=== PATIENT | male | born 1960 | race African-American/Black ===

== ENCOUNTER 2016-03-17 22:19 | Inpatient (IN) | payer MEDICAID, OTHER ==
[~2016-03-17] VITALS: Ht 180.3 cm; Wt 60.0 kg
[~2016-03-17 22:19] MED LIST: ACET325T33 PO
--- NOTE | 2016-03-18 01:52 | RADRPT ---
PROCEDURE: Chest. CLINICAL INDICATION: Shortness of breath and cough. TECHNIQUE: Single frontal view of the chest was obtained. COMPARISON: 01/17/2013. FINDINGS: The cardiac silhouette is within normal limits. The aortic arch is unremarkable. There is a left l ower paratracheal opacity. There is no vascular congestion or pleural effusion. There is no pneumo thorax. IMPRESSION: Left lower paratracheal opacity could represent a consolidation or mass. Further evaluation by CT is recommended. A call report was made to SAMANTA Hodge at 01:50 a.m. .Jeovanny Del Cid MD, MD Date Time Electronically viewed and signed by .Jeovanny Del Cid MD, MD on 03/18/2016 01:51 .T/
[2016-03-18] MEDS ORDERED: morphine 4 MG/ML VIAL IV STA (02:29)
[2016-03-18] MEDS ORDERED: SOD CHLORIDE 0.9% 1,000 ML IV STA (02:29)
[2016-03-18] MEDS ORDERED: ONDANSETRON 4 MG INJ IV STA (02:29)
--- NOTE | 2016-03-18 03:20 | ERD ---
ER Documentation Chief Complaint Date/Time DATE: 03/18/16 TIME: 03:06 Chief Complaint c/o body itch x 1 month (TATIANA HODGE PA-C) HPI Patient is a 55-year-old male who presents to the emergency department complaining of body itching times one month. Patient states that it "itches inside all over, but it is more in the throat and chest." Patient states that he has been to many hospitals and "nobody is taking care of me." Patient states he's tried numerous medications were no relief symptoms, however he does not recall the names of the medications. Patient states he's been having symptoms for over one month. Patient states that he has hoarseness in his voice that is not resolving. Patient also reports shortness of breath and a cough. He states his cough is dry. He denies any hemoptysis. Patient reports dysphagia and shortness of breath. Patient reports decreased appetite. He states that he can "only eat a banana" per day. Patient reports 15 pounds of weight loss over the last few months. Patient denies any fevers but does report chills. Patient denies any abdominal pain, nausea, vomiting. Patient does smoke cigarettes. (TATIANA HODGE PA-C) ROS All systems reviewed and are negative except as per history of present illness. (TATIANA HODGE PA-C) Medications Home Meds Discontinued Scripts Acetaminophen* (Tylenol*) 325 Mg Tablet, 2 TAB PO Q6 Y for FEVER, #20 TAB Prov:VICKY BAZZI MD 12/18/14 Allergies Allergies: Coded Allergies: No Known Drug Allergies (Verified Allergy, Unknown, 03/18/16) PMhx/Soc Medical and Surgical Hx: pt denies Medical Hx, pt denies Surgical Hx Anesthesia Reaction: No Hx Neurological Disorder: No Hx Respiratory Disorders: No Hx Cardiac Disorders: No Hx Psychiatric Problems: Yes (SCHIZOPHRENIA) Hx Miscellaneous Medical Probl: No Hx Alcohol Use: Yes (occassional) Hx Substance Use: Yes (marijuana) Hx Tobacco Use: Yes Smoking Status: Current some day smoker (TATIANA HODGE PA-C) Physical Exam Vitals Vital Signs Date Time Temp Pulse Resp B/P Pulse Ox O2 Delivery O2 Flow Rate FiO2 03/18/16 02:58 98.3 03/17/16 22:24 98.6 115 20 129/88 97 (Coral Santos PA-C) Physical Exam GENERAL: Well-developed, well-nourished male. Appears in no acute distress. Speaking in full sentences. HEAD: Normocephalic, atraumatic. No deformities or ecchymosis. EYE: Pupils equal, round, and reactive to light. EOMs intact. No conjunctival erythema. No scleral icterus. No eye discharge. ENT: External ear without any masses or tenderness. Auditory canals clear bilaterally. TM visualized bilaterally, non-erythematous, non-bulging. Nasal mucosa pink with no discharge. Oropharynx is pink without any tonsillar erythema or exudates. No uvula deviation. No kissing tonsils. NECK: Supple. Normal ROM of neck. LUNGS: Clear to auscultation bilaterally. No rhonchi, wheezing, rales or coarse breath sounds. HEART: Regular rate and rhythm. No murmurs, rubs or gallops. ABDOMEN: Soft, nontender, and nondistended. Positive bowel sounds in all four quadrants. No rebound tenderness, no guarding. (-) McBurney's point tenderness. . EXTREMITIES: Equal pulses bilaterally. No peripheral clubbing, cyanosis or edema. No unilateral leg swelling. NEUROLOGIC: Alert and oriented to person, place and time. Moving all four extremities. 5/5 strength in all extremities. Normal speech. Steady gait. SKIN: Normal color. Warm and dry. No rashes or lesions. PSYCH: Appears agitated. Yelling at "girlfriend." Demanding medication for pain. (TATIANA HODGE PA-C) Result Diagram: 03/18/168 03/18/16 0248 Results 24 hrs Laboratory Tests Test 03/18/16 02:48 Alanine Aminotransferase (ALT/SGPT) 33IU/L Albumin 3.8g/dl Albumin/Globulin Ratio 1.18 Alkaline Phosphatase 163IU/L Anion Gap 17 Aspartate Amino Transf (AST/SGOT) 45IU/L Basophils # 0.010^3/ul Basophils % 0.2% Blood Morphology Comment Blood Urea Nitrogen 11mg/dl Calcium Level 10.5mg/dl Carbon Dioxide Level 29mmol/L Chloride Level 96mmol/L Creatinine 0.70mg/dl Direct Bilirubin 0.00mg/dl Eosinophils # 0.010^3/ul Eosinophils % 0.3% Globulin 3.20g/dl Glucose Level 101mg/dl Hematocrit 44.0% Hemoglobin 15.1g/dl Indirect Bilirubin 0.8mg/dl Lymphocytes # 1.810^3/ul Lymphocytes % 25.4% Mean Corpuscular Hemoglobin 35.0pg Mean Corpuscular Hemoglobin Concent 34.4g/dl Mean Corpuscular Volume 101.9fl Mean Platelet Volume 9.3fl Monocytes # 0.610^3/ul Monocytes % 8.9% Neutrophils # 4.610^3/ul Neutrophils % 65.2% Nucleated Red Blood Cells # 0.010^3/ul Nucleated Red Blood Cells % 0.0/100WBC Platelet Count 17932^3/UL Potassium Level 3.8mmol/L Red Blood Count 4.3210^6/ul Red Cell Distribution Width 14.0% Sodium Level 138mmol/L Total Bilirubin 0.8mg/dl Total Protein 7.0g/dl White Blood Count 7.010^3/ul Current Medications Medications (Trade) Dose Ordered Sig/Manny Route PRN Reason Start Time Stop Time Status Last Admin Dose Admin Morphine Sulfate (morphine) 4 mg ONCE STAT IV 03/18/16 02:29 03/18/16 02:34 DC 03/18/16 02:57 Ondansetron HCl 4 mg 4 mg ONCE STAT IV 03/18/16 02:29 03/18/16 02:34 DC 03/18/16 02:57 Sodium Chloride 1,000 ml @ 1,000 mls/hr Q1H STAT IV 03/18/16 02:29 03/18/16 02:35 DC Sodium Chloride (NS) 100 ml @ ud STK-MED ONCE .ROUTE 03/18/16 04:19 03/18/16 04:20 DC Iohexol (Omnipaque 300mg/ ml) 150 ml STK-MED ONCE .ROUTE 03/18/16 04:19 03/18/16 04:20 DC (Coral Santos PA-C) Procedures/MDM ED COURSE: The patient was stable throughout ED course. I kept the patient and/or family informed of laboratory and diagnostic imaging results throughout the ED course. DIAGNOSTIC IMAGING: Read by radiologist. DIAGNOSTIC IMAGING REPORT Patient: ROSARIO RAUSCH : 1960 Age: 55 Sex: M MR #: [id number] DOS: 03/18/16 0105 Ordering MD: TATIANA HODGE PA-C Location: [facility] Room/Bed: PROCEDURE: Chest. CLINICAL INDICATION: Shortness of breath and cough. TECHNIQUE: Single frontal view of the chest was obtained. COMPARISON: 01/17/2013. FINDINGS: The cardiac silhouette is within normal limits. The aortic arch is unremarkable. There is a left lower paratracheal opacity. There is no vascular congestion or pleural effusion. There is no pneumothorax. IMPRESSION: Left lower paratracheal opacity could represent a consolidation or mass. Further evaluation by CT is recommended. A call report was made to SAMANTA Hodge at 01:50 a.m. .Jeovanny Del Cid MD, MD Date Time Electronically viewed and signed by .Jeovanny Del Cid MD, MD on 03/18/2016 01:51 .T/ CC: TATIANA HODGE PA-C DIAGNOSTIC IMAGING REPORT Patient: ROSARIO RAUSCH : 1960 Age: 55 Sex: M MR #: [id number] DOS: 03/18/16 0233 Ordering MD: TATIANA HODGE PA-C Location: [facility] Room/Bed: PROCEDURE: CT Chest with contrast. CLINICAL INDICATION: Cough. TECHNIQUE: CT scan of the chest was performed on a multi-detector high- resolution CT scanner. Contiguous axial images were obtained from the lung apices to the upper abdomen after the administration of 100 cc Omnipaque-300 intravenous contrast. Coronal and sagittal reformatted images were also obtained. Images were reviewed on the PACS workstation. One or more of the following dose reduction techniques were used: - Automated exposure control. - Adjustment of the mA and/or kV according to patient size. - Use of iterative reconstruction technique. Exam CTD/vol = 4.35 mGy. Total exam DLP = 212.71 mGy-cm. COMPARISON: None. FINDINGS: There is an irregular mass within the left anterior superior mediastinum and upper lobe measuring approximate 6.4 cm AP by 6.8 cm transverse by 7.0 cm sagittal. There is mild surrounding stranding within the left upper lobe. The mass extends along the anterior aortic arch and encases the left subclavian and internal carotid arteries. There is an aberrant right subclavian artery coursing posterior to the trachea and esophagus. The visualized thyroid gland is unremarkable. There are no enlarged axillary lymph nodes. There are no enlarged hilar lymph nodes by CT criteria. The heart and aorta are unremarkable. There is no pericardial thickening or effusion. There is a filling defect within the left internal jugular vein. There is no pleural effusion. The central tracheobronchial tree is within normal limits. There are areas of increased sclerosis within the C7, T1 and T2 vertebral bodies. Limited evaluation of the upper abdomen is unremarkable. IMPRESSION: Left upper lobe and mediastinal mass measuring 6.4 x 6.8 x 7.0 cm concerning for neoplastic disease. Left internal jugular vein thrombus. Aberrant right subclavian artery. Areas of increased sclerosis within the C7, T1 and T2 vertebral bodies suspicious for metastatic disease. A call report was made to [facility] at 04:54 a.m. .Jeovanny Del Cid MD, MD Date Time Electronically viewed and signed by .Jeovanny Del Cid MD, MD on 03/18/2016 04:59 .T/ CC: TATIANA HODGE PA-C MEDICATIONS GIVEN: Morphine, Zofran Patient tolerated medication well with no adverse reactions. Patient reported improvement in pain. MEDICAL DECISION MAKING: Patient is a 55-year-old male who presents emergency department with numerous symptoms including body itching, cough, difficulty swallowing, shortness of breath, cough, decreased appetite and weight loss. Vital signs were reviewed. Patient is afebrile. Patient was not hypoxic. Chest x-ray was obtained which showed peritracheal opacity which could represent consolidation or mass. Further evaluation and a CT was recommended. I discussed these findings with my supervising physician Dr. Cedillo. Dr. Cedillo advised me to order a CT chest with IV contrast. Patient was given IV morphine and IV Zofran for his symptoms. Patient will be signed out to Coral Santos PA-C pending blood work results and CT chest with IV contrast. (TATIANA HODGE PA-C) 0515: Radiologist called to report abnormal CT findings, stated that the patient had a left upper mediastinal mass as well as a thrombus in the left internal jugular vein. I discussed this result with supervising physician Dr. Cedillo, he wished to have the patient transferred to the main ED for admission. At this point I'm transferring care to Dr. Cedillo. (Coral Santos PA-C) TATIANA HODGE PA-C Mar 18, 2016 03:16 Coral Santos PA-C Mar 18, 2016 05:43
[2016-03-18 03:27] LABS: ALBUMIN 3.8 g/dl (3.3-4.9); POTASSIUM 3.8 mmol/L (3.5-5.1)
[2016-03-18 03:29] LABS: CREATININE 0.7 mg/dl (0.61-1.24)
[2016-03-18 03:30] LABS: ALBUMIN/GLOBULIN RATIO 1.18; BILIRUBIN,INDIRECT 0.8 mg/dl (0-1.1); BILIRUBIN,TOTAL 0.8 mg/dl (0.2-1.3); CALCIUM 10.5 mg/dl (8.4-10.2)
[2016-03-18 03:34] LABS: BASOPHILS % 0.2 % (0.0-2.0); EOSINOPHILS % 0.3 % (0.0-7.0); HEMOGLOBIN 15.1 g/dl (14.0-18.0); LYMPHOCYTES # 1.8 10^3/ul (0.8-2.9); LYMPHOCYTES % 25.4 % (15.0-51.0); MEAN CORPUSCULAR HGB CONC 34.4 g/dl (32.0-37.0); MEAN CORPUSCULAR VOLUME 101.9 fl (82.0-101.0); MEAN PLATELET VOLUME 9.3 fl (7.4-10.4); MONOCYTE # 0.6 10^3/ul (0.3-0.9); MONOCYTES % 8.9 % (0.0-11.0); NEUTROPHIL # 4.6 10^3/ul (1.6-7.5); NEUTROPHILS % 65.2 % (39.0-77.0); PLATELET COUNT 236 10^3/UL (140-440); RED BLOOD COUNT 4.32 10^6/ul (4.70-6.10)
[2016-03-18 03:35] LABS: CONDITION 1; LH ANALYZER COMMENTS 1
[2016-03-18] MEDS ORDERED: IOHEXOL 300MG/ML 150 ML BTL ONE (04:19)
[2016-03-18] MEDS ORDERED: SOD CHLORIDE 0.9% 100 ML ONE (04:19)
--- NOTE | 2016-03-18 04:59 | RADRPT ---
PROCEDURE: CT Chest with contrast. CLINICAL INDICATION: Cough. TECHNIQUE: CT scan of the chest was performed on a multi-detector high-resolution CT scanner. Co ntiguous axial images were obtained from the lung apices to the upper abdomen after the administrati on of 100 cc Omnipaque-300 intravenous contrast. Coronal and sagittal reformatted images were also obtained. Images were reviewed on the PACS workstation. One or more of the following dose reduction techniques were used: - Automated exposure control. - Adjustment of the mA and/or kV according to patient size. - Use of iterative reconstruction technique. Exam CTD/vol = 4.35 mGy. Total exam DLP = 212.71 mGy-cm. COMPARISON: None. FINDINGS: There is an irregular mass within the left anterior superior mediastinum and upper lobe measuring ap proximate 6.4 cm AP by 6.8 cm transverse by 7.0 cm sagittal. There is mild surrounding stranding wi thin the left upper lobe. The mass extends along the anterior aortic arch and encases the left subc lavian and internal carotid arteries. There is an aberrant right subclavian artery coursing posteri or to the trachea and esophagus. The visualized thyroid gland is unremarkable. There are no enlarg ed axillary lymph nodes. There are no enlarged hilar lymph nodes by CT criteria. The heart and aor ta are unremarkable. There is no pericardial thickening or effusion. There is a filling defect with in the left internal jugular vein. There is no pleural effusion. The central tracheobronchial tree is within normal limits. There are areas of increased sclerosis within the C7, T1 and T2 vertebral bodies. Limited evaluatio n of the upper abdomen is unremarkable. IMPRESSION: Left upper lobe and mediastinal mass measuring 6.4 x 6.8 x 7.0 cm concerning for neoplastic disease. Left internal jugular vein thrombus. Aberrant right subclavian artery. Areas of increased sclerosis within the C7, T1 and T2 vertebral bodies suspicious for metastatic dis ease. A call report was made to Coral at 04:54 a.m. .Jeovanny Del Cid MD, Date Time Electronically viewed and signed by .Jeovanny Del Cid MD, on 03/18/2016 04:59 .T/
[2016-03-18 06:00] VITALS: PULSE 80; TEMP 98.1
[2016-03-18] MEDS ORDERED: SOD CHLORIDE 0.9% 1,000 ML IV SCH (06:21)
[2016-03-18] MEDS ORDERED: ENOXAPARIN 80 MG/0.8 ML SYG SC SCH (06:30)
[2016-03-18] MEDS ORDERED: ACETAMINOPHEN 325 MG TAB PO PRN ×2 (06:30→10:00)
[2016-03-18] MEDS ORDERED: ONDANSETRON 4 MG INJ IV PRN ×2 (06:30→10:00)
[2016-03-18 07:00] LABS: INR 0.95; PROTIME 12.7 Sec (12.2-14.2)
--- NOTE | 2016-03-18 07:00 | QN ---
Documentation Comment This patient was transferred to the main ER and was signed out to me by her previous physician, Dr. Cedillo. I was told that this patient has a mediastinal mass which is new. I looked at this patient's CT results and noticed that he also has a thrombus in the right internal jugular vein. The patient was given Lovenox in the emergency room. He will be placed in for admission at this time under the care of Dr. boggs who is aware of this patient's condition. GONZALES DOTSON DO Mar 18, 2016 07:00
[2016-03-18 07:01] LABS: PARTIAL THROMBOPLASTIN TIME 28.1 Sec (25.0-35.0)
[2016-03-18 09:30] VITALS: Ht 180.3 cm; Wt 60.0 kg
--- NOTE | 2016-03-18 09:56 | HP ---
Date/Time of Note Date/Time of Note DATE: 03/18/16 TIME: 09:38 Assessment/Plan Assessment/Plan Assessment/Plan IMPRESSION 1. Left upper lobe and mediastinal mass, with C2 and T1&T2 lesion, concerning for metastatic disease. 2. Left internal jugular vein thrombus. 3. Intractable Itching, likely manifestation of malignancy 4. Mild hypercalcemia 5. Hx of schizophrenia PLAN Will order us or CT-guided biopsy Oncology consult provide pain and ani-itch medications. Anxiety meds as needed. HPI/ROS Admit Date/Time Admit Date/Time Mar 18, 2016 at 06:22 Hx of Present Illness Patient is a 55-year-old male who presents to the emergency department complaining of body itching times one month. Patient states that it "itches inside all over, but it is more in the throat and chest." Patient states that he has been to many hospitals and "nobody is taking care of me." Patient states he's tried numerous medications were no relief symptoms, however he does not recall the names of the medications. Patient states he's been having symptoms for over one month. Patient states that he has hoarseness in his voice that is not resolving. Patient also reports shortness of breath and a cough. He states his cough is dry. He denies any hemoptysis. Patient reports dysphagia and shortness of breath. Patient reports decreased appetite. He states that he can "only eat a banana" per day. Patient reports 15 pounds of weight loss over the last few months. Patient denies any fevers but does report chills. Patient denies any abdominal pain, nausea, vomiting. Patient does smoke cigarettes. ER Course: CT chest showed Left upper lobe and mediastinal mass measuring 6.4 x 6.8 x 7.0 cm concerning for neoplastic disease. Left internal jugular vein thrombus. Aberrant right subclavian artery and Areas of increased sclerosis within the C7, T1 and T2 vertebral bodies suspicious for metastatic disease. PMH/Family/Social Social History Smoking Status: Current every day smoker Exam/Review of Systems Vital Signs Vitals Vital Signs Date Time Temp Pulse Resp B/P Pulse Ox O2 Delivery O2 Flow Rate FiO2 03/18/16 06:00 98.1 80 18 138/96 100 Room Air Labs Result Diagram: 03/18/16 0248 03/18/16 0248 Medications Medications Current Medications Enoxaparin Sodium 60 mg 60 mg ONCE SC Last administered on 03/18/16t 06:24; Admin Dose 60 MG; Start 03/18/16 at 06:30 Sodium Chloride (NS) 1,000 ml @ 80 mls/hr [id number] IV ; Start 03/18/16 at 06:21; Stop 03/18/16 at 18:50 Ondansetron HCl (Zofran Inj) 4 mg Q6H PRN IV NAUSEA AND/OR VOMITING; Start 03/18 at 10:00 Acetaminophen (Tylenol Tab) 650 mg Q6H PRN PO PAIN LEVEL 1-3 OR FEVER; Start at 10:00 Acetaminophen/ Hydrocodone Bitart ([place] (5/325)) 1 tab Q6H PRN PO MODERATE PAIN LEVEL 4-6; Start 03/18/16 at 10:00 Morphine Sulfate (morphine) 2 mg Q4H PRN IV SEVERE PAIN LEVEL 7-10; Start at 10:00 Magnesium Hydroxide (Milk Of Mag) 30 ml DAILY PRN PO CONSTIPATION; Start at 10:00 Enoxaparin Sodium (Lovenox) 60 mg Q12 SC ; Start 03/18/16 at 10:00; Status UNV DIXIE MEDINA MD Mar 18, 2016 09:48
[2016-03-18] MEDS ORDERED: MAGNESIUM HYDROXIDE 30ML CUP PO PRN (10:00)
[2016-03-18] MEDS ORDERED: morphine 4 MG/ML VIAL IV PRN (10:00)
[2016-03-18] MEDS ORDERED: NACL 0.9% 3 ML SYG IV SCH (10:00)
[2016-03-18] MEDS ORDERED: morphine 2 MG INJ IV PRN (10:00)
[2016-03-18] MEDS ORDERED: DIPHENHYDRAMINE 50 MG INJ IV PRN (10:00)
[2016-03-18] MEDS ORDERED: hydrOXYzine HCL 25 MG TAB PO PRN (10:00)
[2016-03-18] MEDS ORDERED: LORAZEPAM 2 MG INJ IV PRN (10:00)
[2016-03-18] MEDS ORDERED: ALBUTEROL/IPRATROPIUM (NEB) 3 ML AMP HHN PRN (10:00)
[2016-03-18] MEDS: HYDROCODONE/APAP (5/325) TAB PO PRN ×2 (11:00→18:19)
--- NOTE | 2016-03-18 13:37 | PN ---
Date/Time of Note Date/Time of Note DATE: 03/18/16 TIME: 13:34 Assessment/Plan VTE Prophylaxis VTE Prophylaxis Intervention: LMWH Lines/Catheters IV Catheter Type (from Nrsg): Saline Lock Assessment/Plan Assessment/Plan 1. Left upper lobe and mediastinal mass, with C2 and T1&T2 lesion, concerning for metastatic disease. will talk to radiology for approach of biopsy 2. Left internal jugular vein thrombus. 3. Intractable Itching, likely manifestation of malignancy, better 4. Mild hypercalcemia 5. Hx of schizophrenia Subjective 24 Hr Interval Summary Free Text/Dictation less itching today Exam/Review of Systems Vital Signs Vitals Vital Signs Date Time Temp Pulse Resp B/P Pulse Ox O2 Delivery O2 Flow Rate FiO2 03/18/16 06:00 98.1 80 18 138/96 100 Room Air Exam Constitutional: alert, oriented, well developed Psych: nl mood/affect, no complaints Head: atraumatic, normocephalic Eyes: EOMI, nl conjunctiva, nl lids ENMT: nl external ears & nose, nl lips & teeth, nl nasal mucosa & septum Neck: non-tender, supple Respiratory: clear to auscultation, normal air movement, No congested cough, No crackles/rales, No diminished breath sounds, No intercostal retraction, No labored breathing, No respirations, No tactile fremitus, No wheezing Cardiovascular: nl pulses, regular rate and rhythm, No S3, No S4, No bruits, No diastolic murmur, No edema, No gallop, No irregular rhythm, No jugular venous distention (JVD), No murmurs/extra sounds, No rub, No systolic murmur Gastrointestinal: nl liver, spleen, non-tender, soft, No ascites, No bowel sounds, No distended, No firm, No hepatomegaly, No mass , No rebound or guarding, No splenomegaly, No surgical scars, No tender Musculoskeletal: nl extremities to inspection Extremities: normal pulses, No calf tenderness, No clubbing, No cyanosis, No edema, No palpable cord, No pitting pedal edema, No tenderness Neurological: MANAGED CARE MANAGER II-XII intact, nl mental status, nl speech, nl strength Skin: nl turgor, rash or lesions Lymph: nl lymph nodes Results Result Diagram: 03/18/16 0248 03/18/16 0248 Results 24 hrs Laboratory Tests Test 03/18/16 02:48 03/18/16 06:25 Alanine Aminotransferase (ALT/SGPT) 33 Albumin 3.8 Albumin/Globulin Ratio 1.18 Alkaline Phosphatase 163 H Anion Gap 17 H Aspartate Amino Transf (AST/SGOT) 45 Basophils # 0.0 Basophils % 0.2 Blood Morphology Comment Blood Urea Nitrogen 11 Calcium Level 10.5 H Carbon Dioxide Level 29 Chloride Level 96 L Creatinine 0.70 Direct Bilirubin 0.00 Eosinophils # 0.0 Eosinophils % 0.3 Globulin 3.20 Glucose Level 101 Hematocrit 44.0 Hemoglobin 15.1 Indirect Bilirubin 0.8 Lymphocytes # 1.8 Lymphocytes % 25.4 Mean Corpuscular Hemoglobin 35.0 H Mean Corpuscular Hemoglobin Concent 34.4 Mean Corpuscular Volume 101.9 H Mean Platelet Volume 9.3 Monocytes # 0.6 Monocytes % 8.9 Neutrophils # 4.6 Neutrophils % 65.2 Nucleated Red Blood Cells # 0.0 Nucleated Red Blood Cells % 0.0 Platelet Count 236 # Potassium Level 3.8 Red Blood Count 4.32 L Red Cell Distribution Width 14.0 Sodium Level 138 Total Bilirubin 0.8 Total Protein 7.0 White Blood Count 7.0 # Activated Partial Thromboplast Time 28.1 INR International Normalized Ratio 0.95 Prothrombin Time 12.7 Prothrombin Time Ratio 1.0 Medications Medications Current Medications Sodium Chloride (NS) 1,000 ml @ 80 mls/hr [id number] IV ; Start 03/18/16 at 06:21; Stop 03/18/16 at 18:50 Ondansetron HCl (Zofran Inj) 4 mg Q6H PRN IV NAUSEA AND/OR VOMITING; Start 03/18 at 10:00 Acetaminophen (Tylenol Tab) 650 mg Q6H PRN PO PAIN LEVEL 1-3 OR FEVER; Start at 10:00 Acetaminophen/ Hydrocodone Bitart ([place] (5/325)) 1 tab Q6H PRN PO MODERATE PAIN LEVEL 4-6 Last administered on 03/18/16t 11:00; Admin Dose 1 TAB; Start 03/18 at 10:00 Magnesium Hydroxide (Milk Of Mag) 30 ml DAILY PRN PO CONSTIPATION; Start at 10:00 Enoxaparin Sodium (Lovenox) 60 mg Q12 SC ; Start 03/18/16 at 21:00 Diphenhydramine HCl (Benadryl) 25 mg Q6H PRN IV itching; Start 03/18/16 at 10:00 Hydroxyzine HCl (Atarax) 25 mg Q6H PRN PO ITCHING; Start 03/18/16 at 10:00 Morphine Sulfate (morphine) 4 mg Q4H PRN IV SEVERE PAIN LEVEL 7-10; Start at 10:00 Lorazepam (Ativan) 1 mg Q4H PRN IV anxiety; Start 03/18/16 at 10:00 ELIA FLEMING MD Mar 18, 2016 13:37
[2016-03-18] MEDS: ENOXAPARIN 100 MG/ML SYG SC SCH (21:31)
[2016-03-19] MEDS: HYDROCODONE/APAP (5/325) TAB PO PRN ×3 (03:18→18:49)
[2016-03-19 07:08] LABS: ALBUMIN 3.3 g/dl (3.3-4.9)
[2016-03-19 07:09] LABS: POTASSIUM 3.4 mmol/L (3.5-5.1)
[2016-03-19 07:11] LABS: ALBUMIN/GLOBULIN RATIO 1.06; BILIRUBIN,INDIRECT 0.4 mg/dl (0-1.1); BILIRUBIN,TOTAL 0.4 mg/dl (0.2-1.3); CREATININE 0.7 mg/dl (0.61-1.24); TOTAL PROTEIN 6.4 g/dl (6.1-8.1)
[2016-03-19 07:12] LABS: CALCIUM 9.5 mg/dl (8.4-10.2); MAGNESIUM 1.8 mg/dl (1.7-2.5); PHOSPHORUS 3.4 mg/dl (2.5-4.9)
[2016-03-19 08:11] VITALS: BP 132/85; RESP 20
[2016-03-19] MEDS: ENOXAPARIN 100 MG/ML SYG SC SCH (08:25)
[2016-03-19 11:45] LABS: HEMATOCRIT 42.3 % (42.0-52.0); HEMOGLOBIN 14.9 g/dl (14.0-18.0); MEAN CORPUSCULAR HEMOGLOBIN 34.7 pg (29.0-33.0); MEAN CORPUSCULAR HGB CONC 35.2 g/dl (32.0-37.0); MEAN CORPUSCULAR VOLUME 98.4 fl (82.0-101.0); MEAN PLATELET VOLUME 11.4 fl (7.4-10.4); PLATELET COUNT 203 10^3/UL (140-440); RED CELL DISTRIBUTION WIDTH 13.2 % (11.5-14.5); UNCORRECTED WBC 4.4 10^3/ul (4.8-10.8); WHITE BLOOD COUNT 4.4 10^3/ul (4.8-10.8)
[2016-03-19 11:46] LABS: BASOPHILS % 0.5 % (0.0-2.0); EOSINOPHILS % 0.7 % (0.0-7.0); LYMPHOCYTES # 1.2 10^3/ul (0.8-2.9); LYMPHOCYTES % 27.5 % (15.0-51.0); MONOCYTE # 0.5 10^3/ul (0.3-0.9); MONOCYTES % 11.8 % (0.0-11.0); NEUTROPHIL # 2.6 10^3/ul (1.6-7.5)
--- NOTE | 2016-03-19 12:11 | PN ---
Date/Time of Note Date/Time of Note DATE: 03/19/16 TIME: 12:08 Assessment/Plan VTE Prophylaxis VTE Prophylaxis Intervention: LMWH Lines/Catheters IV Catheter Type (from [facility]): Saline Lock Assessment/Plan Problems: (1) Thrombosis of left internal jugular vein Status: Acute Comment: He is on low molecular weight heparin for this. That will come off in preparation for the lung biopsy. I believe that this is a reflection of the underlying left sided lung mass which is also most likely getting the recurrent laryngeal nerve (2) Abnormal weight loss Status: Acute Comment: I believe this is related to the left-sided lung mass (3) Pruritus Status: Acute Comment: I believe this is a paraneoplastic effect of the left-sided lung mass (4) Mass of left lung Status: Acute Comment: This gentleman who is a tobacco user very likely has a bronchogenic carcinoma. 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 I will check an ionized calcium to make sure that that is not also going on here he will have his biopsy on Monday at that point were any need to do some planning for him. Please note he has never served in the so the [facility] is not [facility] of her options Subjective 24 Hr Interval Summary Free Text/Dictation Reports some left-sided chest pain which is more positional Constitutional: no complaints (Denies fever chills or sweats) ENT: other (Reports some change in the quality of his voice which has been a slowly progressive issue) Respiratory: no complaints (He denies shortness of breath or dyspnea although I suspect actually is just accommodated to untreated COPD) Cardiovascular: chest pain (Left sided pleuritic style chest pain) Gastrointestinal: no complaints Exam/Review of Systems Vital Signs Vitals Vital Signs Date Time Temp Pulse Resp B/P Pulse Ox O2 Delivery O2 Flow Rate FiO2 03/19/16 08:11 98.1 80 20 132/85 95 03/18/16 06:00 Room Air Intake and Output 03/18/16 03/18/16 03/19/16 15:00 23:00 07:00 Intake Total 760 ml Balance 760 ml Exam Charming and distinguish -Macedonian male lying in bed Constitutional: alert, oriented Respiratory: clear to auscultation, diminished breath sounds Cardiovascular: nl pulses, regular rate and rhythm Gastrointestinal: nl liver, spleen, non-tender, soft Results Result Diagram: 03/19/16 0541 03/19/16 0541 Results 24 hrs Laboratory Tests Test 03/19/16 05:41 Alanine Aminotransferase (ALT/SGPT) 30 Albumin 3.3 Albumin/Globulin Ratio 1.06 Alkaline Phosphatase 136 H Anion Gap 13 Aspartate Amino Transf (AST/SGOT) 35 Basophils # 0.0 Basophils % 0.5 Blood Urea Nitrogen 9 Calcium Level 9.5 Carbon Dioxide Level 31 Chloride Level 96 L Creatinine 0.70 Direct Bilirubin 0.00 Eosinophils # 0.0 Eosinophils % 0.7 Globulin 3.10 Glucose Level 79 Hematocrit 42.3 Hemoglobin 14.9 Indirect Bilirubin 0.4 Lymphocytes # 1.2 Lymphocytes % 27.5 Magnesium Level 1.8 Mean Corpuscular Hemoglobin 34.7 H Mean Corpuscular Hemoglobin Concent 35.2 Mean Corpuscular Volume 98.4 Mean Platelet Volume 11.4 #H Monocytes # 0.5 Monocytes % 11.8 H Neutrophils # 2.6 Neutrophils % 59.0 Nucleated Red Blood Cells # 0.0 Nucleated Red Blood Cells % 0.0 Phosphorus Level 3.4 Platelet Count 203 Potassium Level 3.4 L Red Blood Count 4.30 L Red Cell Distribution Width 13.2 Sodium Level 137 Total Bilirubin 0.4 Total Protein 6.4 White Blood Count 4.4 #L Medications Medications Current Medications Ondansetron HCl (Zofran Inj) 4 mg Q6H PRN IV NAUSEA AND/OR VOMITING; Start 03/18 at 10:00 Acetaminophen (Tylenol Tab) 650 mg Q6H PRN PO PAIN LEVEL 1-3 OR FEVER; Start at 10:00 Acetaminophen/ Hydrocodone Bitart ([place] (5/325)) 1 tab Q6H PRN PO MODERATE PAIN LEVEL 4-6 Last administered on 03/19/16 11:36; Admin Dose 1 TAB; Start 03/18 at 10:00 Magnesium Hydroxide (Milk Of Mag) 30 ml DAILY PRN PO CONSTIPATION; Start at 10:00 Enoxaparin Sodium (Lovenox) 60 mg Q12 SC Last administered on 03/19/16 08:25; Admin Dose 60 MG; Start 03/18/16 at 21:00 Diphenhydramine HCl (Benadryl) 25 mg Q6H PRN IV itching; Start 03/18/16 at 10:00 Hydroxyzine HCl (Atarax) 25 mg Q6H PRN PO ITCHING; Start 03/18/16 at 10:00 Morphine Sulfate (morphine) 4 mg Q4H PRN IV SEVERE PAIN LEVEL 7-10; Start at 10:00 Lorazepam (Ativan) 1 mg Q4H PRN IV anxiety; Start 03/18/16 at 10:00 KAVITA DUNN MD Mar 19, 2016 12:11
[2016-03-19] MEDS: SALMETEROL/FLUTICASONE 250/50 INHA INH SCH ×2 (16:19→21:42)
[2016-03-19 19:00] VITALS: BP 122/81; RESP 20
[2016-03-19] MEDS ORDERED: ENOXAPARIN 60 MG/0.6 ML SYG SC SCH (21:00)
--- NOTE | 2016-03-20 10:56 | DS ---
Date/Time of Note Date/Time of Note DATE: 03/20/16 TIME: 10:54 Discharge Summary Admission/Discharge Info Admit Date/Time Mar 18, 2016 at 06:22 Discharge Date/Time Mar 19, 2016 at 22:30 Final Diagnosis Left lung mass suspicious for neoplasm; tobacco abuse; left internal jugular vein thrombosis; abnormal weight loss Patient Condition: Serious Procedures CT scan chest; anticoagulation Hx of Present Illness Patient is a 55-year-old male who presents to the emergency department complaining of body itching times one month. Patient states that it "itches inside all over, but it is more in the throat and chest." Patient states that he has been to many hospitals and "nobody is taking care of me." Patient states he's tried numerous medications were no relief symptoms, however he does not recall the names of the medications. Patient states he's been having symptoms for over one month. Patient states that he has hoarseness in his voice that is not resolving. Patient also reports shortness of breath and a cough. He states his cough is dry. He denies any hemoptysis. Patient reports dysphagia and shortness of breath. Patient reports decreased appetite. He states that he can "only eat a banana" per day. Patient reports 15 pounds of weight loss over the last few months. Patient denies any fevers but does report chills. Patient denies any abdominal pain, nausea, vomiting. Patient does smoke cigarettes. ER Course: CT chest showed Left upper lobe and mediastinal mass measuring 6.4 x 6.8 x 7.0 cm concerning for neoplastic disease. Left internal jugular vein thrombus. Aberrant right subclavian artery and Areas of increased sclerosis within the C7, T1 and T2 vertebral bodies suspicious for metastatic disease. Hospital Course 55-year-old -[place] gentleman admitted with left internal jugular vein thrombosis left lung mass left-sided pleuritic style chest pain and pruritus with abnormal weight loss. He was scheduled for CT-guided needle biopsy. On the evening of March 19, 2016 he apparently signed out AGAINST MEDICAL ADVICE although there is no documentation in the chart at all. As such she is left and we were unable to give him any type of follow-up or prescriptions or medications. Home Meds Discontinued Scripts Acetaminophen* (Tylenol*) 325 Mg Tablet, 2 TAB PO Q6 Y for FEVER, #20 TAB Prov:VICKY BAZZI MD 12/18/14 KAVITA DUNN MD Mar 20, 2016 10:55
== END 2016-03-19 22:30 | disposition left against medical advice (07) | DRG 607 ==
LOC: FTE 22:19 → MS2 03-18 06:22
PROVIDERS: ADMIT Internal Medicine; ATTEND Internal Medicine
DX: L29.9 Pruritus, unspecified (principal); I82.C12 Acute embolism and thrombosis of left internal jugular vein; R13.10 Dysphagia, unspecified; J44.9 Chronic obstructive pulmonary disease, unspecified; Z68.1 Body mass index [BMI] 19.9 or less, adult; R63.4 Abnormal weight loss; F17.200 Nicotine dependence, unspecified, uncomplicated; R91.8 Other nonspecific abnormal finding of lung field; R49.0 Dysphonia; R06.02 Shortness of breath; R05 Cough; F20.9 Schizophrenia, unspecified; R22.2 Localized swelling, mass and lump, trunk
CPT/HCPCS: 71010; 71260; 80053; 83735; 84100; 85025; 85610; 85730; 96372; 96374; 96375; J1650; J2270; J2405; J7030; Q9967

== ENCOUNTER 2016-06-16 16:02 | Emergency (ER) | payer MEDICAID, OTHER ==
[~2016-06-16] VITALS: Ht 180.3 cm; Wt 58.0 kg
[2016-06-16 16:04] VITALS: Ht 180.3 cm; Wt 58.0 kg
[2016-06-16] MEDS ORDERED: ASPIRIN 81 MG TAB PO STA (16:34)
[2016-06-16] MEDS ORDERED: KETOROLAC 30 MG INJ IV STA (16:34)
[2016-06-16 17:01] LABS: ADD SCAN DIFF NO
[2016-06-16 17:04] LABS: BASOPHILS % 0.4 % (0.0-2.0); HEMATOCRIT 41.7 % (42.0-52.0); HEMOGLOBIN 15.1 g/dl (14.0-18.0); LYMPHOCYTES # 1.4 10^3/ul (0.8-2.9); LYMPHOCYTES % 27.2 % (15.0-51.0); MEAN CORPUSCULAR HEMOGLOBIN 35.7 pg (29.0-33.0); MEAN CORPUSCULAR HGB CONC 36.2 g/dl (32.0-37.0); MEAN CORPUSCULAR VOLUME 98.6 fl (82.0-101.0); MEAN PLATELET VOLUME 10.1 fl (7.4-10.4); MONOCYTE # 0.5 10^3/ul (0.3-0.9); MONOCYTES % 10.2 % (0.0-11.0); NEUTROPHIL # 3.3 10^3/ul (1.6-7.5); NEUTROPHILS % 61.8 % (39.0-77.0); PLATELET COUNT 230 10^3/UL (140-415); RED BLOOD COUNT 4.23 10^6/ul (4.70-6.10); WHITE BLOOD COUNT 5.3 10^3/ul (4.8-10.8)
[2016-06-16 17:17] LABS: CHLORIDE 95 mmol/L (97-110); SODIUM 134 mmol/L (135-144)
[2016-06-16 17:18] LABS: POTASSIUM 3.3 mmol/L (3.5-5.1)
[2016-06-16 17:20] LABS: ALANINE AMINOTRANSFERASE 22 IU/L (13-69); ALBUMIN/GLOBULIN RATIO 1.02; ALKALINE PHOSPHATASE 151 IU/L (42-121); ANION GAP 11 (8-16); ASPARTATE AMINO TRANSFERASE 36 IU/L (15-46); BILIRUBIN,INDIRECT 0.7 mg/dl (0-1.1); BILIRUBIN,TOTAL 0.7 mg/dl (0.2-1.3); BLOOD UREA NITROGEN 15 mg/dl (7-20); CARBON DIOXIDE 31 mmol/L (21-31); CREATININE 0.81 mg/dl (0.61-1.24); GLUCOSE 81 mg/dl (70-220); TOTAL PROTEIN 7.9 g/dl (6.1-8.1)
[2016-06-16 17:21] LABS: CALCIUM 10.6 mg/dl (8.4-10.2); INR 0.96; PROTIME 12.8 Sec (12.2-14.2)
[2016-06-16 17:22] LABS: PARTIAL THROMBOPLASTIN TIME 28.3 Sec (25.0-35.0)
--- NOTE | 2016-06-16 17:44 | RADRPT ---
PROCEDURE: CHEST 1VW CLINICAL INDICATION: Chest pain TECHNIQUE: Single frontal view of the chest was obtained COMPARISON: 03/18/2016 FINDINGS: The cardiac size is normal. Aortic vascular calcifications are demonstrated. There is no pulmonary vascular congestion. Interval development of left upper lobe opacity suspicious for pneumonia. The right lung is clear. Mild degenerative changes of the visualized osseous structures are visualized. IMPRESSION: 1. Interval development of left upper lobe opacity suspicious for pneumonia. 2. Atherosclerosis. RPTAT:PP .Hollis Carlos MD, MD Date Time Electronically viewed and signed by .Hollis Carlos MD, MD on 06/16/2016 17:43 .V/
[2016-06-16 18:05] LABS: TROPONIN-I < 0.012 ng/ml (0.00-0.12)
[2016-06-16] MEDS ORDERED: AZIT500T3 PO (18:25)
[2016-06-16 18:51] VITALS: BP 136/80; PULSE 80; RESP 18; TEMP 97.8
[2016-06-16] MEDS ORDERED: LIDOCAINE 1% (MDV) 20 ML INJ SC ONE (19:00)
[2016-06-16] MEDS ORDERED: CEFTRIAXONE 1 GM INJ IM ONE (19:00)
--- NOTE | 2016-06-16 19:28 | ERD ---
ER Documentation Chief Complaint Date/Time DATE: 06/16/16 TIME: 19:24 Chief Complaint SOB, FEELS SWEATY AND LEFT SHOULDER PAIN HPI This patient is a 56-year-old male with past medical history of schizophrenia and depression presenting to the emergency department for left shoulder pain and shortness of breath ongoing intermittently for the past 4 months. Additionally the patient has had sweating intermittently. He admits to some left-sided chest pain with radiation to the back and is worse when coughing. He has had some mild nausea. The patient denies abdominal pain, diarrhea, urinary symptoms, or other symptoms at this time. The patient is taken no medication for relief of symptoms. ROS All systems reviewed and are negative except as per history of present illness. Medications Home Meds Active Scripts Azithromycin* (Zithromax*) 500 Mg Tablet, 500 MG PO DAILY for 3 Days, #3 TAB Prov:DIXIE SANCHEZ PA-C 06/16/16 Allergies Allergies: Coded Allergies: No Known Drug Allergies (Verified Allergy, Unknown, 03/18/16) PMhx/Soc History of Surgery: No Anesthesia Reaction: No Hx Neurological Disorder: No Hx Respiratory Disorders: Yes (lung mass) Hx Cardiac Disorders: No Hx Psychiatric Problems: Yes (paranoid schizophrenia) Hx Miscellaneous Medical Probl: No Hx Alcohol Use: Yes (socially) Hx Substance Use: Yes (marijuana) Hx Tobacco Use: Yes Smoking Status: Current every day smoker FmHx Noncontributory for chief complaint Physical Exam Vitals Vital Signs Date Time Temp Pulse Resp B/P Pulse Ox O2 Delivery O2 Flow Rate FiO2 06/16/16 18:51 97.8 80 18 136/80 98 Room Air 06/16/16 16:04 97.5 113 20 128/64 100 Physical Exam Const: The patient is resting comfortably in no acute distress Head: Atraumatic Eyes: Normal Conjunctiva ENT: Normal External Ears, Nose and Mouth. Neck: Full range of motion..~ No meningismus. Resp: Clear to auscultation bilaterally Cardio: Regular rate and rhythm, no murmurs Abd: Soft, non tender, non distended. Normal bowel sounds Skin: No petechiae or rashes Back: No midline or flank tenderness Ext: No cyanosis, or edema Neur: Awake and alert Psych: Normal Mood and Affect Result Diagram: 06/16/16 1650 06/16/16 1650 Results 24 hrs Laboratory Tests Test 06/16/16 16:50 White Blood Count 5.310^3/ul Red Blood Count 4.2310^6/ul Hemoglobin 15.1g/dl Hematocrit 41.7% Mean Corpuscular Volume 98.6fl Mean Corpuscular Hemoglobin 35.7pg Mean Corpuscular Hemoglobin Concent 36.2g/dl Red Cell Distribution Width 12.0% Platelet Count 02262^3/UL Mean Platelet Volume 10.1fl Neutrophils % 61.8% Lymphocytes % 27.2% Monocytes % 10.2% Eosinophils % 0.0% Basophils % 0.4% Nucleated Red Blood Cells % 0.0/100WBC Neutrophils # 3.310^3/ul Lymphocytes # 1.410^3/ul Monocytes # 0.510^3/ul Eosinophils # 0.010^3/ul Basophils # 0.010^3/ul Nucleated Red Blood Cells # 0.010^3/ul Prothrombin Time 12.8Sec Prothrombin Time Ratio 1.0 INR International Normalized Ratio 0.96 Activated Partial Thromboplast Time 28.3Sec Sodium Level 134mmol/L Potassium Level 3.3mmol/L Chloride Level 95mmol/L Carbon Dioxide Level 31mmol/L Anion Gap 11 Blood Urea Nitrogen 15mg/dl Creatinine 0.81mg/dl Glucose Level 81mg/dl Calcium Level 10.6mg/dl Total Bilirubin 0.7mg/dl Direct Bilirubin 0.00mg/dl Indirect Bilirubin 0.7mg/dl Aspartate Amino Transf (AST/SGOT) 36IU/L Alanine Aminotransferase (ALT/SGPT) 22IU/L Alkaline Phosphatase 151IU/L Troponin I < 0.012ng/ml Total Protein 7.9g/dl Albumin 4.0g/dl Globulin 3.90g/dl Albumin/Globulin Ratio 1.02 Current Medications Medications (Trade) Dose Ordered Sig/Manny Route PRN Reason Start Time Stop Time Status Last Admin Dose Admin Aspirin (Aspirin) 162 mg ONCE STAT PO 06/16/16 16:34 06/16/16 16:37 DC 06/16/16 16:52 Ketorolac Tromethamine (Toradol) 30 mg ONCE STAT IV 06/16/16 16:34 06/16/16 16:37 DC 06/16/16 16:52 Ceftriaxone Sodium (Rocephin) 1 gm ONCE ONCE IM 5/4/17 19:00 06/16/16 19:01 DC 06/16/16 18:40 Lidocaine (Xylocaine 1% (Mdv) 20 ml) 20 ml ONCE ONCE SC 06/16/16 19:00 06/16/16 19:01 DC 06/16/16 18:39 Procedures/MDM EMERGENCY DEPARTMENT COURSE / MEDICAL DECISION MAKING: This is a 56-year-old male who comes to the emergency room secondary to complaints of shortness of breath, chest pain, and back pain. The patient was given aspirin, Toradol, and Rocephin in the department. On re- evaluation, the patient was feeling improved. Lab results reviewed and showed no significant acute abnormalities. A troponin was negative and I have low suspicion for cardiac ischemia. EKG: Interpreted by ED physician Rate/Rhythm: Sinus tachycardia with a rate of 103 bpm. QRS, ST, T-waves: [No changes consistent w/ acute ischemia] Impression: [No evidence of ischemia or arrhythmia] Radiology: PROCEDURE: CHEST 1VW CLINICAL INDICATION: Chest pain TECHNIQUE: Single frontal view of the chest was obtained COMPARISON: 03/18/2016 FINDINGS: The cardiac size is normal. Aortic vascular calcifications are demonstrated. There is no pulmonary vascular congestion. Interval development of left upper lobe opacity suspicious for pneumonia. The right lung is clear. Mild degenerative changes of the visualized osseous structures are visualized. IMPRESSION: 1. Interval development of left upper lobe opacity suspicious for pneumonia. 2. Atherosclerosis. RPTAT:PP .Hollis Carlos MD, MD Date Time Electronically viewed and signed by .Hollis Carlos MD, on 06/16/2016 17:43 .V/ CC: DIXIE SANCHEZ PA-C The primary diagnosis is pneumonia. I have low suspicion for cardiac ischemia, pneumothorax, pulmonary embolism, septicemia, or other emergent conditions at this time. Discharge: I have discussed the lab results and diagnostic findings with the patient and answered any questions or concerns. The patient was discharged with a prescription for azithromycin. The patient was advised to followup with their PMD in 1-2 days and to return to the Emergency Department if there are any new or worsening symptoms. The patient understood and agreed with the diagnosis, treatment and plan. The patient is stable for discharge at this time. Departure Diagnosis: Primary Impression: Pneumonia Pneumonia type: due to unspecified organism Laterality: unspecified laterality Lung location: unspecified part of lung Qualified Code: J18.9 - Pneumonia due to infectious organism, unspecified laterality, unspecified part of lung Condition: Fair Patient Instructions: Pneumonia (Adult) Additional Instructions: Follow up with your PCP within the next 1-3 days for a more thorough evaluation and a possible referral to a specialist. Return the the emergency department immediately if symptoms worsen or change. If you have any questions regarding medications, ask your pharmacist or us before you leave. If any adverse reactions, occur while taking your medications, discontinue the treatment and return to the emergency department immediately. If any new or worsening symptoms, uncontrolled fevers, or other unexplained symptoms occur, return to the emergency department immediately. Take your medications as directed, and complete the entire course of treatment. DIXIE SANCHEZ PA-C June 16, 2016 19:28
== END 2016-06-16 18:51 | disposition home or self-care (01) ==
LOC: FTE 16:02
DX: J18.9 Pneumonia, unspecified organism (principal); F17.210 Nicotine dependence, cigarettes, uncomplicated
CPT/HCPCS: 36415; 71010; 80053; 84484; 85025; 85610; 85730; 96372; 96374; J0696; J1885; Z7502; Z7610; 93005

== ENCOUNTER 2016-06-18 10:32 | Emergency (ER) | payer OTHER ==
[~2016-06-18] VITALS: Ht 182.9 cm; Wt 76.1 kg
[~2016-06-18 10:32] MED LIST changes: -ACET325T33 PO; +AZIT500T3 PO
[2016-06-18 10:38] VITALS: Ht 182.9 cm; Wt 76.1 kg
--- NOTE | 2016-06-18 12:21 | RADRPT ---
PROCEDURE: XR Chest. CLINICAL INDICATION: Cough. TECHNIQUE: Single frontal view. COMPARISON: Chest x-ray dated 06/16/2016. CT scan of the chest dated 03/18/2016 FINDINGS: The lungs are hyperinflated. There is an ill-defined density in the left upper lobe medially consis tent with neoplasm as seen on prior CT scan of the chest. The heart size is normal. There is no pleural effusion. There is no pneumothorax. IMPRESSION: 1. Mass in the left upper lobe medially consistent with neoplasm as seen on prior CT scan of the ch est. 2. No other new abnormality. RPTAT: QQ .Real Ford MD, MD Date Time Electronically viewed and signed by .Real Ford MD, MD on 06/18/2016 12:20 .R/
[2016-06-18] MEDS ORDERED: ALBU8.5H3 INH (12:28)
[2016-06-18] MEDS ORDERED: TRAM50TA2 PO (12:33)
--- NOTE | 2016-06-18 12:52 | ERD ---
ER Documentation Chief Complaint Date/Time DATE: 06/18/16 TIME: 12:44 Chief Complaint flu like symptoms HPI This is a 56-year-old male that presents to the ER with continued cough, weakness and shortness of breath. Patient denies any chest pain. Patient was seen here 2 days ago and was treated for pneumonia. Patient states he still continues to cough a lot and has cold symptoms. He denies any sore throat or ear pain. Patient is a smoker and is currently homeless. He was admitted back in March secondary to lung mass, however left AGAINST MEDICAL ADVICE before obtaining a CT-guided needle biopsy of the mass. Patient has not had any fevers or chills. Patient has a past medical history of bipolar disorder. ROS 12 point review of systems was done, all negative except per HPI. Medications Home Meds Active Scripts Tramadol HCl (Tramadol HCl) 50 Mg Tablet, 50 MG PO Q4 Y for PAIN, #10 TAB Prov:RASHEED PUCKETT 06/18/16 Albuterol Sulfate* (Proair HFA*) 8.5 Gm Hfa.aer.ad, 2 PUFF INH Q4, #1 INHALER Prov:RASHEED PUCKETT 06/18/16 Azithromycin* (Zithromax*) 500 Mg Tablet, 500 MG PO DAILY for 3 Days, #3 TAB Prov:DIXIE SANCHEZ PA-C 06/16/16 Allergies Allergies: Coded Allergies: No Known Drug Allergies (Verified Allergy, Unknown, 03/18/16) PMhx/Soc History of Surgery: No Anesthesia Reaction: No Hx Neurological Disorder: No Hx Respiratory Disorders: Yes (lung mass) Hx Cardiac Disorders: No Hx Psychiatric Problems: Yes (paranoid schizophrenia) Hx Miscellaneous Medical Probl: No Hx Alcohol Use: Yes (socially) Hx Substance Use: Yes (marijuana) Hx Tobacco Use: Yes Smoking Status: Current every day smoker Physical Exam Vitals Vital Signs Date Time Temp Pulse Resp B/P Pulse Ox O2 Delivery O2 Flow Rate FiO2 06/18/16 10:38 97.8 83 18 102/ 98 Physical Exam GENERAL: The patient is well developed and appropriate for usual state of health , in no apparent distress. HEENT: Atraumatic. CHEST: Clear to auscultation bilaterally. There are no rales, wheezes or rhonchi. HEART: Regular rate and rhythm. No murmurs, clicks, rubs or gallops. NEURO: Alert and oriented. SKIN: There is no apparent rash or petechia. The skin is warm and dry. Procedures/MDM This is a 56-year-old male that presents to the ER with continued cough and shortness of breath. On physical examination lungs are clear to auscultation patient is not hypoxic or in any respiratory distress. He is afebrile and well- appearing. Patient does have a known mass in his lung, which he has not gotten follow-up for. This is likely the cause for his cough and shortness of breath. Patient was admitted here 2 months ago and left AGAINST MEDICAL ADVICE before obtaining CT guided needle biopsy. At this time x-ray was repeated and mass is unchanged. There is no evidence of continued pneumonia as seen on the last x- ray. At this time patient is stable for outpatient follow-up, his oxygen remained above 98% at all times in the ER, he is able to tolerate food and fluids as I gave him a sandwich and juice in the ER, and he is afebrile. There was also no evidence of any other lung abnormalities on xray which would require admission such as pleural effusion or pneumothorax. I discussed this case with my supervising physician Dr. Esquivel and he agrees with my medical decision making. I extensively discussed the importance of following up with his primary care doctor which is listed in his discharge paperwork. I also gave patient resources to community health and [facility]. I discussed the importance of patient's possible diagnosis, patient understood and stated that he would follow up. Patient will be sent home with albuterol and with tramadol for pain. He urgently needs to follow-up with his primary care doctor on Monday and schedule an appointment with the meteorological engineer soon as possible. I attached patient's previous images to his discharge paperwork. Patient may return to the ER anytime if symptoms worsen or change. He understands and agrees with plan. Departure Diagnosis: Primary Impression: Mass of left lung Condition: Stable Patient Instructions: Chronic Lung Disease: Avoiding Irritants and Allergens Referrals: CRISTOPHER GAMINO (PCP) [facility] YOU HAVE RECEIVED A MEDICAL SCREENING EXAM AND THE RESULTS INDICATE THAT YOU DO NOT HAVE A CONDITION THAT REQUIRES URGENT TREATMENT IN THE EMERGENCY DEPARTMENT. FURTHER EVALUATION AND TREATMENT OF YOUR CONDITION CAN WAIT UNTIL YOU ARE SEEN IN YOUR DOCTORS OFFICE WITHIN THE NEXT 1-2 DAYS. IT IS YOUR RESPONSIBILITY TO MAKE AN APPOINTMENT FOR FOLOW-UP CARE. IF YOU HAVE A PRIMARY DOCTOR --you should call your primary doctor and schedule an appointment IF YOU DO NOT HAVE A PRIMARY DOCTOR YOU CAN CALL OUR PHYSICIAN REFERRAL HOTLINE AT IF YOU CAN NOT AFFORD TO SEE A PHYSICIAN YOU CAN CHOSE FROM THE FOLLOWING [facility] [address] [facility] [address] [facility] [address] [facility] [address] [facility] [address] [facility]. [facility] [address] [facility]. [facility] YOU HAVE RECEIVED A MEDICAL SCREENING EXAM AND THE RESULTS INDICATE THAT YOU DO NOT HAVE A CONDITION THAT REQUIRES URGENT TREATMENT IN THE EMERGENCY DEPARTMENT. FURTHER EVALUATION AND TREATMENT OF YOUR CONDITION CAN WAIT UNTIL YOU ARE SEEN IN YOUR DOCTORS OFFICE WITHIN THE NEXT 1-2 DAYS. IT IS YOUR RESPONSIBILITY TO MAKE AN APPOINTMENT FOR FOLOW-UP CARE. IF YOU HAVE A PRIMARY DOCTOR --you should call your primary doctor and schedule and appointment IF YOU DO NOT HAVE A PRIMARY DOCTOR YOU CAN CALL OUR PHYSICIAN REFERRAL HOTLINE AT . IF YOU CAN NOT AFFORD TO SEE A PHYSICIAN YOU CAN CHOSE FROM THE FOLLOWING [facility]: [facility] [address] [place] [address] [facility] [address] [place] [address] [facility] [address] [place] [address] Additional Instructions: SPECIALIST: YOU HAVE A MEDICAL CONDITION WHICH REQUIRES YOU TO SEE A SPECIALIST WITHIN THE NEXT 1-2 DAYS. PLEASE FOLLOW UP WITH YOUR PRIMARY PHYSICIAN FOR REFFERAL.IF YOU DO NOT HAVE A PRIMARY CARE PHYSICIAN AND/OR YOU CAN NOT AFFORD TO SEE A PHYSICIAN THE FOLLOWING RESOURCES HAVE BEEN SUPPLIED TO YOU. IT IS YOUR RESPONSIBILITY TO BE SEEN BY THE SPECIALIST MUST SEE A PEDIATRIC INTENSIVE PHYSICIAN! RASHEED VIVAS June 18, 2016 12:52
== END 2016-06-18 13:30 | disposition home or self-care (01) ==
LOC: FTE 10:32
DX: R91.8 Other nonspecific abnormal finding of lung field (principal); F17.210 Nicotine dependence, cigarettes, uncomplicated
CPT/HCPCS: 71010; Z7502

== ENCOUNTER 2016-06-24 18:53 | Emergency (ER) | payer OTHER ==
[~2016-06-24] VITALS: Ht 172.7 cm; Wt 58.0 kg
[~2016-06-24 18:53] MED LIST changes: +ALBU8.5H3 INH; +TRAM50TA2 PO
[2016-06-24 19:00] VITALS: Ht 172.7 cm; Wt 58.0 kg
--- NOTE | 2016-06-24 21:02 | ERD ---
ER Documentation Chief Complaint Date/Time DATE: 06/24/16 TIME: 21:00 Chief Complaint requesting how to administer"enoxaparin" subcutameous shot to himself HPI Patient is a 56-year-old male who is a DVT who says "I need my Lovenox shot". He has the shot itself he just wants to be able to show his significant other how to give it to him. She is unsure as to how to administer it. He does not remove the name of his primary doctor. He has no complaints otherwise. ROS All systems reviewed and are negative except as per history of present illness. Medications Home Meds Active Scripts Tramadol HCl (Tramadol HCl) 50 Mg Tablet, 50 MG PO Q4 Y for PAIN, #10 TAB Prov:RASHEED PUCKETT 06/18/16 Albuterol Sulfate* (Proair HFA*) 8.5 Gm Hfa.aer.ad, 2 PUFF INH Q4, #1 INHALER Prov:RASHEED PUCKETT 06/18/16 Azithromycin* (Zithromax*) 500 Mg Tablet, 500 MG PO DAILY for 3 Days, #3 TAB Prov:DIXIE SANCHEZ PA-C 06/16/16 Allergies Allergies: Coded Allergies: No Known Drug Allergies (Verified Allergy, Unknown, 03/18/16) PMhx/Soc Medical and Surgical Hx: pt denies Surgical Hx History of Surgery: No Anesthesia Reaction: No Hx Neurological Disorder: No Hx Respiratory Disorders: Yes (lung mass) Hx Cardiac Disorders: No Hx Psychiatric Problems: Yes (paranoid schizophrenia) Hx Miscellaneous Medical Probl: No Hx Alcohol Use: Yes (socially) Hx Substance Use: Yes (marijuana) Hx Tobacco Use: Yes Smoking Status: Never smoker Physical Exam Vitals Vital Signs Date Time Temp Pulse Resp B/P Pulse Ox O2 Delivery O2 Flow Rate FiO2 06/24/16 19:00 97.6 97 20 139/67 98 Physical Exam Const: No acute distress Head: Atraumatic Eyes: Normal Conjunctiva ENT: Normal External Ears, Nose and Mouth. Neck: Full range of motion..~ No meningismus. Resp: Clear to auscultation bilaterally Cardio: Regular rate and rhythm, no murmurs Abd: Soft, non tender, non distended. Normal bowel sounds Skin: No petechiae or rashes Back: No midline or flank tenderness Ext: No cyanosis, or edema Neur: Awake and alert Psych: Normal Mood and Affect Procedures/MDM Smoking Cessation Therapy: Pt. was lectured for greater than 3 minutes on the health risks of continued smoking and the benefits of cessation. Patient is a 56-year-old male who presents for a medication administration. He has the Lovenox shot with him but once the nurse to give it to him so he can show the significant other how to give it to him in the future. The patient has no other complaints. He is being treated for a DVT. I believe outpatient management is appropriate after the nurse shows him the proper way to administer the medication. Departure Diagnosis: Primary Impression: DVT (deep venous thrombosis) DVT location: upper extremity Affected thrombotic vein of extremity: unspecified vein of extremity Laterality: left Chronicity: acute Qualified Code: I82.622 - Acute deep vein thrombosis (DVT) of left upper extremity, unspecified vein Condition: Fair Patient Instructions: Dvt Additional Instructions: Call your primary care doctor TOMORROW for an appointment during the next 1 WEEK.Tell the field secretary that you were referred from this facility.See the doctor sooner or return here if your condition worsens before your appointment time. SARITA CASH MD June 24, 2016 21:02
== END 2016-06-24 19:39 | disposition home or self-care (01) ==
LOC: FTE 18:53
DX: I82.622 Acute embolism and thrombosis of deep veins of left upper extremity (principal)
CPT/HCPCS: 99282

== ENCOUNTER 2016-06-29 15:21 | Emergency (ER) | payer OTHER ==
[~2016-06-29] VITALS: Ht 170.2 cm; Wt 75.0 kg
[2016-06-29 15:23] VITALS: Ht 170.2 cm; Wt 75.0 kg
[2016-06-29] MEDS ORDERED: HYDROCODONE/APAP (5/325) TAB PO ONE ×2 (17:30→20:00)
[2016-06-29] MEDS ORDERED: HYDR-906 PO ×2 (17:40→19:49)
[2016-06-29 17:46] LABS: ADD SCAN DIFF NO
[2016-06-29 17:49] LABS: BASOPHILS % 0.2 % (0.0-2.0); HEMATOCRIT 39.3 % (42.0-52.0); HEMOGLOBIN 14.1 g/dl (14.0-18.0); LYMPHOCYTES # 0.8 10^3/ul (0.8-2.9); LYMPHOCYTES % 16.3 % (15.0-51.0); MEAN CORPUSCULAR HEMOGLOBIN 34.6 pg (29.0-33.0); MEAN CORPUSCULAR HGB CONC 35.9 g/dl (32.0-37.0); MEAN CORPUSCULAR VOLUME 96.6 fl (82.0-101.0); MEAN PLATELET VOLUME 10.4 fl (7.4-10.4); MONOCYTE # 0.3 10^3/ul (0.3-0.9); MONOCYTES % 6.1 % (0.0-11.0); NEUTROPHIL # 3.9 10^3/ul (1.6-7.5); NEUTROPHILS % 77.2 % (39.0-77.0); PLATELET COUNT 229 10^3/UL (140-415); RED BLOOD COUNT 4.07 10^6/ul (4.70-6.10); RED CELL DISTRIBUTION WIDTH 11.9 % (11.5-14.5); WHITE BLOOD COUNT 5.1 10^3/ul (4.8-10.8)
--- NOTE | 2016-06-29 17:56 | RADRPT ---
PROCEDURE: Chest x-ray CLINICAL INDICATION: Chest pain TECHNIQUE: Chest single view COMPARISON: 06/18/2016 FINDINGS: The heart is normal in size. The pulmonary vessels are normal in caliber. There is a stable left m edial apical lung mass. Consistent with known neoplasm. There is a questionable second nodular dens ity in the left upper lobe. Lungs otherwise clear. There is hyperinflation of the lungs. Costophr enic angles are sharp. Bony thorax is unremarkable. IMPRESSION: 1. Stable medial left apical lung mass consistent with known neoplasm. 2. Questionable second nodular density in the left upper lobe. 3. Mild hyperinflation of the lungs RPTAT: HH .Jesus Ricks MD, MD Date Time Electronically viewed and signed by .Jesus Ricks MD, on 06/29/2016 17:56 .W/
[2016-06-29 18:05] LABS: CHLORIDE 95 mmol/L (97-110)
[2016-06-29 18:06] LABS: POTASSIUM 4.3 mmol/L (3.5-5.1); SODIUM 134 mmol/L (135-144)
[2016-06-29 18:07] LABS: INR 0.89; PT RATIO 0.9
[2016-06-29 18:08] LABS: CREATININE 0.63 mg/dl (0.61-1.24); PARTIAL THROMBOPLASTIN TIME 30.7 Sec (25.0-35.0)
[2016-06-29 18:09] LABS: ANION GAP 14 (8-16); BLOOD UREA NITROGEN 10 mg/dl (7-20); CARBON DIOXIDE 29 mmol/L (21-31); CREATINE KINASE 171 IU/L (23-200); GLUCOSE 70 mg/dl (70-220)
[2016-06-29 18:24] LABS: CK-MB 2.06 ng/ml (0.0-2.4); TROPONIN-I < 0.012 ng/ml (0.00-0.12)
[2016-06-29 18:26] LABS: TROPONIN-I < 0.012 ng/ml (0.00-0.12)
--- NOTE | 2016-06-29 18:35 | ERD ---
ER Documentation Chief Complaint Date/Time DATE: 06/29/16 TIME: 18:33 Chief Complaint CHEST CONGESTION AND BODY ACHE X 2 MONTHS HPI This is a 56-year-old male presents to the emergency room for chest congestion and body aches for the past 2 months. He states that he is hurting all of his body, he states "I need pain medicine". Patient states that his pain left side of his body on the right side. He denies any numbness or tingling. He came to the ER today for evaluation ROS All systems reviewed and are negative except as per history of present illness. Medications Home Meds Reported Medications Hydrocodone/Acetaminophen ([place] 5-325 Tablet) 1 Each Tablet, 1 EACH PO Q6H, TAB 06/29/16 Discontinued Scripts Tramadol HCl (Tramadol HCl) 50 Mg Tablet, 50 MG PO Q4 Y for PAIN, #10 TAB Prov:RASHEED PUCKETT 06/18/16 Albuterol Sulfate* (Proair HFA*) 8.5 Gm Hfa.aer.ad, 2 PUFF INH Q4, #1 INHALER Prov:RASHEED PUCKETT 06/18/16 Azithromycin* (Zithromax*) 500 Mg Tablet, 500 MG PO DAILY for 3 Days, #3 TAB Prov:DIXIE SACNHEZ PA-C 06/16/16 Allergies Allergies: Coded Allergies: No Known Drug Allergies (Verified Allergy, Unknown, 06/29/16) PMhx/Soc History of Surgery: No Anesthesia Reaction: No Hx Neurological Disorder: No Hx Respiratory Disorders: Yes (lung mass) Hx Cardiac Disorders: No Hx Psychiatric Problems: Yes (paranoid schizophrenia) Hx Miscellaneous Medical Probl: No Hx Alcohol Use: Yes (socially) Hx Substance Use: Yes (marijuana) Hx Tobacco Use: Yes Smoking Status: Current every day smoker Physical Exam Vitals Vital Signs Date Time Temp Pulse Resp B/P Pulse Ox O2 Delivery O2 Flow Rate FiO2 06/29/16 15:23 97.5 73 19 141/83 96 Physical Exam INITIAL VITAL SIGNS: Reviewed by me GENERAL: The patient is well developed and appropriate for usual state of health in no apparent distress HEENT: Pupils equal, round, and reactive to light. EOMI. There is no scleral icterus. NECK: C-spine is soft and supple, there is no meningismus. There is no cervical lymphadenopathy. LUNGS: Clear to auscultation bilaterally. There are no rales, wheezes or rhonchi. HEART: Regular rate and rhythm, no murmurs, clicks, rubs or gallops. ABDOMEN: Soft, non-tender, non-distended. There are bowel sounds in all four quadrants. No rebound or guarding. EXTREMITIES: There is no peripheral cyanosis or edema. No focal swelling or erythema. NEUROLOGICAL: The patient moves all four extremities with 5/5 strength. Cranial nerves II - XII are intact. Normal gait. Alert and oriented SKIN: There is no apparent rash or petechiae. HEME/LYMPHATIC: There is no evidence of excessive bruising or lymphedema. PSYCHIATRIC: The patient does not appear anxious or depressed. Result Diagram: 06/29/16 1725 06/29/16 1725 Results 24 hrs Laboratory Tests Test 06/29/16 17:25 White Blood Count 5.110^3/ul Red Blood Count 4.0710^6/ul Hemoglobin 14.1g/dl Hematocrit 39.3% Mean Corpuscular Volume 96.6fl Mean Corpuscular Hemoglobin 34.6pg Mean Corpuscular Hemoglobin Concent 35.9g/dl Red Cell Distribution Width 11.9% Platelet Count 39152^3/UL Mean Platelet Volume 10.4fl Neutrophils % 77.2% Lymphocytes % 16.3% Monocytes % 6.1% Eosinophils % 0.0% Basophils % 0.2% Nucleated Red Blood Cells % 0.0/100WBC Neutrophils # 3.910^3/ul Lymphocytes # 0.810^3/ul Monocytes # 0.310^3/ul Eosinophils # 0.010^3/ul Basophils # 0.010^3/ul Nucleated Red Blood Cells # 0.010^3/ul Prothrombin Time 12.0Sec Prothrombin Time Ratio 0.9 INR International Normalized Ratio 0.89 Activated Partial Thromboplast Time 30.7Sec Sodium Level 134mmol/L Potassium Level 4.3mmol/L Chloride Level 95mmol/L Carbon Dioxide Level 29mmol/L Anion Gap 14 Blood Urea Nitrogen 10mg/dl Creatinine 0.63mg/dl Glucose Level 70mg/dl Calcium Level 10.0mg/dl Creatine Kinase 171IU/L Creatine Kinase Index 1.2 Creatinine Kinase MB (Mass) 2.06ng/ml Troponin I < 0.012ng/ml Current Medications Medications (Trade) Dose Ordered Sig/Manny Route PRN Reason Start Time Stop Time Status Last Admin Dose Admin Acetaminophen/ Hydrocodone Bitart ([place] (5/325)) 1 tab ONCE ONCE PO 06/29/16 17:30 06/29/16 17:31 DC 06/29/16 17:31 Procedures/MDM EKG: Rate/Rhythm: [Normal Sinus Rhythm] QRS, ST, T-waves: [No changes consistent w/ acute ischemia] Impression: [No evidence of ischemia or arrhythmia] Chest X-ray 1V Interpreted by me: Soft Tissue: No acute abnormalities Bones: No acute abnormalities Mediastinum/Cardiac Silhouette/Lungs: [No acute abnormalities] This 46-year-old male presents to the emergency room for evaluation of body aches and chest pain and congestion. When I evaluate this patient is hemodynamically stable, he is in no acute distress, not hypoxic, not tachycardic. An EKG was obtained which was nonischemic. Chest x-ray is clear. Patient also had lab work drawn including a troponin which is negative. This patient will be discharged at this time with homeless long term referrals as an outpatient. Differential diagnoses entertained was broad with potential high acuity. Patient has been evaluated for acute myocardial infarction, unstable angina, aortic dissection, pulmonary embolism, other intrathoracic and cardiac concerns. Ultimately the patient's evaluation is nondiagnostic. Based on the patient's lack of risk factors, as well as the patient's clinical, laboratory, and imaging data, the patient appears to be low risk for these high risk causes of chest pain. Smoking Cessation Therapy: Pt. was lectured for greater than 3 minutes on the health risks of continued smoking and the benefits of cessation. Departure Diagnosis: Primary Impression: Chest congestion Additional Impressions: Tobacco abuse Tobacco abuse counseling Condition: Stable NILAGONZALES JIN June 29, 2016 18:35
[2016-06-30] MEDS ORDERED: NAPR-260 PO (08:55)
== END 2016-06-29 20:20 | disposition home or self-care (01) ==
LOC: E/R 15:21
DX: R09.89 Other specified symptoms and signs involving the circulatory and respiratory systems (principal); F17.210 Nicotine dependence, cigarettes, uncomplicated; R07.9 Chest pain, unspecified; Z71.6 Tobacco abuse counseling
CPT/HCPCS: 36415; 71010; 80048; 82550; 82553; 84484; 85025; 85610; 85730; 93005; Z7502; Z7610

== ENCOUNTER 2016-06-30 06:43 | Emergency (ER) | payer OTHER ==
[~2016-06-30] VITALS: Ht 180.3 cm; Wt 58.0 kg
[~2016-06-30 06:43] MED LIST changes: -ALBU8.5H3 INH; -AZIT500T3 PO; +HYDR-906 PO; -TRAM50TA2 PO
[2016-06-30 06:56] VITALS: Ht 180.3 cm; Wt 58.0 kg
[2016-06-30] MEDS ORDERED: NAPR-260 PO (08:55)
[2016-06-30] MEDS ORDERED: IBUPROFEN 600 MG TAB PO ONE (09:00)
[2016-06-30 09:08] VITALS: BP 120/81; PULSE 71; RESP 18
--- NOTE | 2016-06-30 09:58 | ERD ---
ER Documentation Chief Complaint Date/Time DATE: 06/30/16 TIME: 09:56 Chief Complaint chronic L shoulder pain (seen last night) HPI 56-year-old man requesting opioid analgesics including S[place] and more [place]. He was just given a prescription for [place] to use for chronic pain syndrome. He denies suicidal homicidal ideation, no fevers or chills, no recent weight loss. Patient denies cough, hemoptysis, or vomiting. ROS All systems reviewed and are negative except as per history of present illness. Medications Home Meds Active Scripts Naproxen* (Naprosyn*) 500 Mg Tablet, 500 MG PO BID Y for PAIN AND/OR INFLAMMATION, #30 TAB Prov:EBENEZER VILLANUEVA MD 06/30/16 Hydrocodone/Acetaminophen ([place] 5-325 Tablet) 1 Each Tablet, 1 TAB PO Q6H Y for PAIN, #10 TAB Prov:GONZALES DOTSON DO 06/29/16 Reported Medications Hydrocodone/Acetaminophen ([place] 5-325 Tablet) 1 Each Tablet, 1 EACH PO Q6H, TAB 06/29/16 Discontinued Scripts Tramadol HCl (Tramadol HCl) 50 Mg Tablet, 50 MG PO Q4 Y for PAIN, #10 TAB Prov:LAVERNRASHEED BARCLAY 06/18/16 Albuterol Sulfate* (Proair HFA*) 8.5 Gm Hfa.aer.ad, 2 PUFF INH Q4, #1 INHALER Prov:STEFANO PUCKETTNA C 06/18/16 Azithromycin* (Zithromax*) 500 Mg Tablet, 500 MG PO DAILY for 3 Days, #3 TAB Prov:DIXIE SANCHEZ PA-C 06/16/16 Allergies Allergies: Coded Allergies: No Known Drug Allergies (Verified Allergy, Unknown, 06/29/16) PMhx/Soc Chronic lung nodule, chronic pain syndrome, asthma History of Surgery: No Anesthesia Reaction: No Hx Neurological Disorder: No Hx Respiratory Disorders: Yes (lung mass) Hx Cardiac Disorders: No Hx Psychiatric Problems: Yes (paranoid schizophrenia) Hx Miscellaneous Medical Probl: No Hx Alcohol Use: Yes (socially) Hx Substance Use: Yes (marijuana) Hx Tobacco Use: Yes Smoking Status: Current every day smoker FmHx Family History: No diabetes Physical Exam Vitals Vital Signs Date Time Temp Pulse Resp B/P Pulse Ox O2 Delivery O2 Flow Rate FiO2 06/30/16 09:08 71 18 120/81 99 Room Air 06/30/16 06:56 96.9 110 123/83 100 Physical Exam GENERAL: Well-developed, well-nourished, well-hydrated, in no apparent distress , looks nontoxic in appearance HEENT: Moist mucous membranes, pink conjunctiva, no cervical spine tenderness or step-off deformities, no goiter, no jaundice or icterus, extraocular movements intact without pain. No submandibular induration, and no pharyngeal erythema NEURO: Alert and oriented 3, cranial nerves II through XII intact bilaterally, pupils equal round reactive to light, no focal deficits or facial asymmetry, sensation intact distally Strength 5/5 in upper and lower extremities bilaterally CARDIAC: Regular rate and rhythm, no murmurs rubs or gallops LUNGS: Clear bilaterally no wheezing crackles or stridor ABDOMEN: Soft nontender, no guarding, no rigidity, no rebound, no psoas sign no obturator sign. Normoactive bowel sounds SKIN: Warm and dry to touch, no abrasions, contusions, or hematomas, no lacerations, no ecchymosis, no target lesions, and without ulcers EXTREMITIES: No clubbing cyanosis or edema, calves are bilaterally symmetrical, no Homans sign, no popliteal cord sign. Distal pulses equal and bilateral PSYCH: Normal affect without agitation or irritability Results 24 hrs Current Medications Medications (Trade) Dose Ordered Sig/Manny Route PRN Reason Start Time Stop Time Status Last Admin Dose Admin Ibuprofen (Motrin) 600 mg ONCE ONCE PO 06/30/16 09:00 06/30/16 09:01 DC 06/30/16 09:03 Procedures/MDM Reassurance was provided to the patient here in the emergency department we also gave him a meal tray including juice and water. For his symptoms I administered ibuprofen 600 mg p.o. Differential diagnoses considered, included but not limited to acute coronary syndrome, pulmonary embolism, aortic dissection, abdominal aortic aneurysm, sepsis, stroke, meningitis, encephalitis, pneumonia, appendicitis, cholecystitis , bowel obstruction, pyelonephritis, nephrolithiasis, cystitis, as well as metabolic, hematologic, and electrolyte abnormalities. As well as abscess, cellulitis, fractures, and dislocations. Patient feels much better at this time, and vital signs are normal, symptoms have improved. I did give strict instructions to return to the ED if symptoms continue or worsen, patient will otherwise follow-up with primary care physician. Patient understood instructions and agreed to plan. Departure Diagnosis: Primary Impression: Chronic pain Chronic pain type: chronic pain syndrome Qualified Code: G89.4 - Chronic pain syndrome Additional Impression: Mass of left lung Condition: Good Patient Instructions: Chronic Pain EBENEZER VILLANUEVA MD June 30, 2016 09:58
== END 2016-06-30 09:09 | disposition home or self-care (01) ==
LOC: E/R 06:43
DX: G89.4 Chronic pain syndrome (principal); R91.8 Other nonspecific abnormal finding of lung field; J45.909 Unspecified asthma, uncomplicated; F17.210 Nicotine dependence, cigarettes, uncomplicated
CPT/HCPCS: Z7502; Z7610; 99283

== ENCOUNTER 2016-07-06 22:37 | Emergency (ER) | payer OTHER ==
[~2016-07-06] VITALS: Ht 175.3 cm; Wt 61.5 kg
[~2016-07-06 22:37] MED LIST changes: +NAPR-260 PO
[2016-07-06 22:42] VITALS: Ht 175.3 cm; Wt 61.5 kg
[2016-07-07] MEDS ORDERED: HYDROmorphONE 1 MG/ML SYG IM STA (01:05)
[2016-07-07] MEDS ORDERED: ONDANSETRON (ODT) 4 MG TAB ODT STA (01:05)
[2016-07-07] MEDS ORDERED: ASPI-664 PO (01:24)
[2016-07-07] MEDS ORDERED: IBUP200C11 PO (01:24)
--- NOTE | 2016-07-07 04:20 | RADRPT ---
PROCEDURE: XR Chest. CLINICAL INDICATION: Chest pain TECHNIQUE: Single frontal view of the chest was obtained COMPARISON: Chest x-ray of 06/18/[address] chest of 03/18/2016 FINDINGS: Left upper mediastinal and medial left lung lobe mass/neoplasm again seen. The heart is not enlarged . ECG leads projected over the chest. There is no pleural effusion or pneumothorax. Old right mid posterior rib fractures again seen. IMPRESSION: Left upper mediastinal and medial left lung lobe mass/neoplasm again seen. RPTAT: HJES .Vic Zacarias MD, MD Date Time Electronically viewed and signed by .Vic Zacarias MD, MD on 07/07/2016 04:20 .S/
[2016-07-07] MEDS ORDERED: TRAM50TA2 PO (04:25)
[2016-07-07 04:30] VITALS: BP 159/87; PULSE 90; RESP 18
--- NOTE | 2016-07-07 04:30 | ERD ---
ER Documentation Chief Complaint Date/Time DATE: 07/07/16 TIME: 04:25 Chief Complaint chronic body pain HPI This is a 56-year-old male who is frequently seen here. The patient says he has a left lung mass and it causes him chronic pain. Patient says he is having clear up with the pain. He has noted shortness of breath no cough no fever no substernal chest pressure no pain in the jaw elbows arms or back. No abdominal pain vomiting or diarrhea. The patient just seems like he wants to sleep. He is homeless and is laying on the stretcher with 1 of his blankets over his head ROS All systems reviewed and are negative except as per history of present illness. Medications Home Meds Active Scripts Tramadol HCl (Tramadol HCl) 50 Mg Tablet, 50 MG PO Q6, #20 TAB Prov:NEO HERRERA DO 07/07/16 Naproxen* (Naprosyn*) 500 Mg Tablet, 500 MG PO BID Y for PAIN AND/OR INFLAMMATION, #30 TAB Prov:EBENEZER VILLANUEVA MD 06/30/16 Reported Medications Ibuprofen* (Advil*) 200 Mg Capsule, 400 MG PO Q6H Y for PAIN, CAP 07/07/16 Aspirin* (Aspirin* EC) 81 Mg Tablet.dr, 81 MG PO DAILY, TAB 07/07/16 Discontinued Reported Medications Hydrocodone/Acetaminophen ([place] 5-325 Tablet) 1 Each Tablet, 1 EACH PO Q6H, TAB 06/29/16 Discontinued Scripts Hydrocodone/Acetaminophen ([place] 5-325 Tablet) 1 Each Tablet, 1 TAB PO Q6H Y for PAIN, #10 TAB Prov:GONZALES DOTSON DO 06/29/16 Allergies Allergies: Coded Allergies: No Known Drug Allergies (Unverified Allergy, Unknown, 07/07/16) PMhx/Soc Medical and Surgical Hx: pt denies Surgical Hx History of Surgery: No Anesthesia Reaction: No Hx Neurological Disorder: No Hx Respiratory Disorders: Yes (lung mass) Hx Cardiac Disorders: No Hx Psychiatric Problems: Yes (paranoid schizophrenia) Hx Miscellaneous Medical Probl: No Hx Alcohol Use: Yes (daily) Hx Substance Use: Yes (marijuana daily) Hx Tobacco Use: Yes (5-6/day) Smoking Status: Current every day smoker FmHx Family History: No coronary disease Physical Exam Vitals Vital Signs Date Time Temp Pulse Resp B/P Pulse Ox O2 Delivery O2 Flow Rate FiO2 07/06/16 22:42 98.3 70 20 158/92 97 Physical Exam Const: Well-developed, well-nourished Head: Atraumatic, normocephalic Eyes: Normal Conjunctiva, PERRLA, EOMI, normal sclera, no nystagmus ENT: Normal External Ears, Nose and Mouth, moist mucus membranes. Neck: Full range of motion. No meningismus, no lymphadenopathy. Resp: Clear to auscultation bilaterally, no wheezing, rhonchi, rales Cardio: Regular rate and rhythm, no murmurs, S1 S2 present Abd: Soft, non tender x 4, non distended. Normal bowel sounds, no guarding or rebound, no pulsitile abdominal masses or bruits Skin: No petechiae or rashes, no ecchymosis , no maculopapular rash Back: No midline or flank tenderness Ext: No cyanosis, or edema, FROM x 4, normal inspection, neurovascularly intact x 4 Neur: Awake and alert, STR 5/5 x 4, sensation intact x 4, no focal findings, cerebellum intact Psych: Normal Mood and Affect Results 24 hrs Current Medications Medications (Trade) Dose Ordered Sig/Manny Route PRN Reason Start Time Stop Time Status Last Admin Dose Admin Hydromorphone HCl (Dilaudid) 1 mg ONCE STAT IM 07/07/16 01:05 07/07/16 01:06 DC 07/07/16 01:18 Ondansetron HCl (Zofran Odt) 4 mg ONCE STAT ODT 07/07/16 01:05 07/07/16 01:06 DC 07/07/16 01:18 Procedures/MDM EKG: Rate/Rhythm: Normal Sinus Rhythm,NL intervals QRS, ST, QT: NORMAL NM, QRS, QT] Impression: NORMAL EKG PROCEDURE: XR Chest. CLINICAL INDICATION: Chest pain TECHNIQUE: Single frontal view of the chest was obtained COMPARISON: Chest x-ray of 06/18/[address] chest of 03/18/2016 FINDINGS: Left upper mediastinal and medial left lung lobe mass/neoplasm again seen. The heart is not enlarged. ECG leads projected over the chest. There is no pleural effusion or pneumothorax. Old right mid posterior rib fractures again seen. IMPRESSION: Left upper mediastinal and medial left lung lobe mass/neoplasm again seen. RPTAT: HJES .Vic Zacraias MD, MD Date Time Electronically viewed and signed by .Vic Zacarias MD, on 07/07/2016 04:20 .S/ CC: NEO HERRERA DO Departure Diagnosis: Primary Impression: Chronic pain Chronic pain type: other chronic pain Qualified Code: G89.29 - Other chronic pain Condition: Stable Patient Instructions: Chronic Pain Referrals: CRISTOPHER GAMINO (PCP) NEO HERRERA DO July 07, 2016 04:29
== END 2016-07-07 04:30 | disposition home or self-care (01) ==
LOC: E/R 22:37
DX: G89.29 Other chronic pain (principal); R06.02 Shortness of breath; F17.210 Nicotine dependence, cigarettes, uncomplicated; Z79.82 Long term (current) use of aspirin
CPT/HCPCS: 71010; 93005; 96372; J1170; Z7502; Z7610